=== PATIENT | male | born 1980 | race African-American/Black ===

== ENCOUNTER → 2025-05-05 | Outpatient (CLI) | payer OTHER | LOC: M RAD 07:54 | PROVIDERS: ATTEND Student in an Organized Health Care Education/Training Program | DX: S69.90XA Unspecified injury of unspecified wrist, hand and finger(s), initial encounter (principal); R60.0 Localized edema; M65.941 Unspecified synovitis and tenosynovitis, right hand; X58.XXXA Exposure to other specified factors, initial encounter; Y92.9 Unspecified place or not applicable; Y93.9 Activity, unspecified; Y99.9 Unspecified external cause status ==

== ENCOUNTER → 2025-05-08 | Outpatient (CLI) | payer OTHER, SELFPAY | LOC: EDUNIT# 08:30 → M RAD 08:50 | PROVIDERS: ATTEND Student in an Organized Health Care Education/Training Program | DX: S69.90XA Unspecified injury of unspecified wrist, hand and finger(s), initial encounter (principal); W18.30XA Fall on same level, unspecified, initial encounter; Y92.009 Unspecified place in unspecified non-institutional (private) residence as the place of occurrence of the external cause ==